=== PATIENT | female | born 1945 | race Caucasian/White ===

== ENCOUNTER 2016-03-21 10:06 | Emergency (ER) | payer MEDICARE, OTHER ==
[~2016-03-21] VITALS: Ht 165.1 cm; Wt 81.8 kg
[2016-03-21 10:10] VITALS: Ht 165.1 cm; Wt 81.8 kg
[2016-03-21] MEDS ORDERED: METO50TA16 PO (10:20)
[2016-03-21] MEDS ORDERED: ATOR20TA38 PO (10:21)
[2016-03-21] MEDS ORDERED: NATE60TA8 PO (10:21)
[2016-03-21] MEDS ORDERED: LORA0.5T PO (10:22)
[2016-03-21] MEDS ORDERED: DICL75TA2 PO (10:22)
[2016-03-21] MEDS ORDERED: LORAZEPAM 2 MG INJ IV ONE (10:30)
[2016-03-21 10:40] LABS: BASOPHILS % 0.7 % (0.0-2.0); EOSINOPHILS # 0.1 10^3/ul (0.0-0.5); EOSINOPHILS % 1.3 % (0.0-7.0); HEMATOCRIT 39.1 % (37.0-47.0); HEMOGLOBIN 13.4 g/dl (12.0-16.0); LYMPHOCYTES # 2.4 10^3/ul (0.8-2.9); LYMPHOCYTES % 36.8 % (15.0-51.0); MEAN CORPUSCULAR HEMOGLOBIN 29.9 pg (29.0-33.0); MEAN CORPUSCULAR HGB CONC 34.3 g/dl (32.0-37.0); MEAN CORPUSCULAR VOLUME 87.2 fl (82.0-101.0); MEAN PLATELET VOLUME 8.5 fl (7.4-10.4); MONOCYTE # 0.5 10^3/ul (0.3-0.9); MONOCYTES % 7.6 % (0.0-11.0); NEUTROPHIL # 3.5 10^3/ul (1.6-7.5); NEUTROPHILS % 53.6 % (39.0-77.0); PLATELET COUNT 241 10^3/UL (140-440); RED BLOOD COUNT 4.49 10^6/ul (4.20-5.40); RED CELL DISTRIBUTION WIDTH 13.4 % (11.5-14.5); UNCORRECTED WBC 6.6 10^3/ul (4.8-10.8); WHITE BLOOD COUNT 6.6 10^3/ul (4.8-10.8)
[2016-03-21 10:44] LABS: CHLORIDE 101 mmol/L (97-110); INR 0.94; PROTIME 12.6 Sec (12.2-14.2); SODIUM 140 mmol/L (135-144)
[2016-03-21 10:45] LABS: CONDITION 1; PARTIAL THROMBOPLASTIN TIME 33.2 Sec (25.0-35.0); POTASSIUM 3.8 mmol/L (3.5-5.1)
[2016-03-21 10:47] LABS: CREATININE 0.54 mg/dl (0.44-1.00)
[2016-03-21 10:48] LABS: ANION GAP 15 (8-16); BLOOD UREA NITROGEN 21 mg/dl (7-20); CALCIUM 8.9 mg/dl (8.4-10.2); CARBON DIOXIDE 28 mmol/L (21-31); GLUCOSE 113 mg/dl (70-220)
[2016-03-21 11:00] LABS: TROPONIN-I < 0.010 ng/ml (0.00-0.12)
--- NOTE | 2016-03-21 11:32 | ERD ---
ER Documentation Chief Complaint Date/Time DATE: 03/21/16 TIME: 11:32 Chief Complaint CP/ epigastric pain x 1 hour HPI Patient is a 70-year-old female with coronary disease, hypertension, diabetes, and palpitations who presents with chest pain. The patient has chest pain which radiates down into her epigastric area. She was brought in by ambulance. She said that it started this morning and lasted 10 minutes. She felt hot all over her body. She felt weak and felt like she would pass out. She said that she checked her heart rate and it was 140. She has had no treatment yet and says "I feel normal and good now". The patient has a history of panic attack and feels this may have been the same. She is refusing chest x-ray. Upon review of old medical records this is the patient's first visit to the ER. Her primary doctor is Dr. Cm. ROS All systems reviewed and are negative except as per history of present illness. Medications Home Meds Reported Medications Diclofenac Sodium* (Diclofenac Sodium*) 75 Mg Tablet.dr, 75 MG PO BID Y for PAIN , #60 TAB 03/21/16 Lorazepam* (Lorazepam*) 0.5 Mg Tablet, 0.5 MG PO BID Y for ANXIETY, TAB 03/21/16 Atorvastatin Calcium* (Atorvastatin Calcium*) 20 Mg Tablet, 20 MG PO QHS, #30 TAB 03/21/16 Nateglinide* (Starlix*) 60 Mg Tablet, 60 MG PO BID WITH MEALS, TAB 03/21/16 Metoprolol Succinate* (Toprol XL*) 50 Mg Tab.er.24h, 50 MG PO DAILY, #30 TAB 03/21/16 Allergies Allergies: Coded Allergies: Sulfa (Sulfonamide Antibiotics) (Verified Allergy, Unknown, 03/21/16) codeine (Verified Allergy, Unknown, 03/21/16) erythromycin base (Verified Allergy, Unknown, 03/21/16) piperacillin (Verified Allergy, Unknown, 03/21/16) tazobactam (Verified Allergy, Unknown, 03/21/16) PMhx/Soc History of Surgery: Yes (hysterectomy, back surgery) Hx Respiratory Disorders: No Hx Cardiac Disorders: Yes (Takotsubo ) Hx Psychiatric Problems: Yes Hx Miscellaneous Medical Probl: Yes (HTN, DM) Hx Alcohol Use: No Hx Substance Use: No Hx Tobacco Use: No Smoking Status: Never smoker FmHx Family History: No coronary disease Physical Exam Vitals Vital Signs Date Time Temp Pulse Resp B/P Pulse Ox O2 Delivery O2 Flow Rate FiO2 03/21/16 11:54 98.7 64 14 117/61 100 Room Air 03/21/16 10:31 Nasal Cannula 03/21/16 10:10 98.3 82 16 130/92 100 Physical Exam Const: No acute distress Head: Atraumatic Eyes: Normal Conjunctiva ENT: Normal External Ears, Nose and Mouth. Neck: Full range of motion..~ No meningismus. Resp: Clear to auscultation bilaterally Cardio: Regular rate and rhythm, no murmurs Abd: Soft, non tender, non distended. Normal bowel sounds Skin: No petechiae or rashes Back: No midline or flank tenderness Ext: No cyanosis, or edema Neur: Awake and alert Psych: Normal Mood and Affect Result Diagram: 03/21/16 1018 03/21/16 1018 Results 24 hrs Laboratory Tests Test 03/21/16 10:18 Activated Partial Thromboplast Time 33.2Sec Anion Gap 15 Basophils # 0.010^3/ul Basophils % 0.7% Blood Urea Nitrogen 21mg/dl Calcium Level 8.9mg/dl Carbon Dioxide Level 28mmol/L Chloride Level 101mmol/L Creatinine 0.54mg/dl Eosinophils # 0.110^3/ul Eosinophils % 1.3% Glucose Level 113mg/dl Hematocrit 39.1% Hemoglobin 13.4g/dl INR International Normalized Ratio 0.94 Lymphocytes # 2.410^3/ul Lymphocytes % 36.8% Mean Corpuscular Hemoglobin 29.9pg Mean Corpuscular Hemoglobin Concent 34.3g/dl Mean Corpuscular Volume 87.2fl Mean Platelet Volume 8.5fl Monocytes # 0.510^3/ul Monocytes % 7.6% Neutrophils # 3.510^3/ul Neutrophils % 53.6% Nucleated Red Blood Cells # 0.010^3/ul Nucleated Red Blood Cells % 0.0/100WBC Platelet Count 89707^3/UL Potassium Level 3.8mmol/L Prothrombin Time 12.6Sec Prothrombin Time Ratio 1.0 Red Blood Count 4.4910^6/ul Red Cell Distribution Width 13.4% Sodium Level 140mmol/L Troponin I < 0.010ng/ml White Blood Count 6.610^3/ul Current Medications Medications (Trade) Dose Ordered Sig/Angella Route PRN Reason Start Time Stop Time Status Last Admin Dose Admin Lorazepam (Ativan) 0.5 mg ONCE ONCE IV 03/21/16 10:30 03/21/16 10:31 DC 03/21/16 10:22 Procedures/MDM EKG read by me: Rate/Rhythm: Regular rate and rhythm at a rate of 70 Intervals: Normal Impression: No evidence of ischemia or arrhythmia Patient refused chest x-ray. Patient is a 70-year-old female who presents with palpitations and near syncope. She had a normal workup with laboratory studies and EKG. She refused chest x-ray. At this point I did discuss with her admission versus discharge and did offer admission but the patient would prefer to go home at this time. At this point I doubt pneumonia, pneumothorax, pulmonary embolism, or aortic dissection. There is a possibility of acute coronary syndrome but I think this is a fairly atypical presentation. She can return for any worsening symptoms but should follow-up closely with her primary doctor within 24-48 hours. Departure Diagnosis: Primary Impression: Palpitations Additional Impression: Chest pain Chest pain type: unspecified Qualified Code: R07.9 - Chest pain, unspecified type Condition: Fair Patient Instructions: Chest Pain, Uncertain Cause, Palpitations Referrals: CHE CHINCHILLA (PCP) Additional Instructions: FOLLOW UP WITH YOUR PRIMARY CARE PHYSICIAN TOMORROW.Return to this facility if you are not improving as expected. MAIDA BULLARD MD Mar 21, 2016 11:32
[2016-03-21 11:54] VITALS: BP 117/61; PULSE 64; RESP 14; TEMP 98.7
== END 2016-03-21 11:55 | disposition home or self-care (01) ==
LOC: E/R 10:06
DX: R00.2 Palpitations (principal); I10 Essential (primary) hypertension; E11.9 Type 2 diabetes mellitus without complications; I25.10 Atherosclerotic heart disease of native coronary artery without angina pectoris; Z79.84 Long term (current) use of oral hypoglycemic drugs
CPT/HCPCS: 36415; 80048; 84484; 85025; 85610; 85730; 93005; 96374; 99284; J2060